=== PATIENT | male | born 1945 | race Caucasian/White ===

== ENCOUNTER 2022-11-10 08:23 | Outpatient (CLI) | payer OTHER | END 2022-11-10 08:24 | disposition home or self-care (01) | LOC: CT 08:23 | PROVIDERS: ATTEND Physician Assistant | DX: C34.12 Malignant neoplasm of upper lobe, left bronchus or lung (principal) | CPT/HCPCS: 71250 ==

== ENCOUNTER 2024-03-22 08:00 | Outpatient (CLI) | payer MEDICARE, OTHER | END 2024-03-22 08:01 | disposition home or self-care (01) | LOC: PET 08:00 | PROVIDERS: ATTEND Radiology Radiation Oncology | DX: C34.12 Malignant neoplasm of upper lobe, left bronchus or lung (principal); J98.11 Atelectasis | CPT/HCPCS: 78815; A9552 ==